=== PATIENT | female | born 1950 | race Caucasian/White ===

== ENCOUNTER → 2022-04-27 | Outpatient (CLI) | payer SELFPAY ==
[2022-04-28 13:31] LABS: Stool Occult Bld Immuno 1 Negative (NEGATIVE)
== END ==
LOC: LAB SHORT 14:42
PROVIDERS: Family Medicine
DX: Z12.11 Encounter for screening for malignant neoplasm of colon (principal)
CPT/HCPCS: G0328

== ENCOUNTER → 2022-09-12 | Outpatient (CLI) | payer MEDICARE ==
[~2022-09-12] MED LIST: ARTIFICIAL TEAR15 M2 OP; CEPH250A; Celexa20 MG PO; DABI150C; DIGOX125 MC1 PO; FURO20; LISI20 PO; METO25ER PO
[2022-09-12 16:12] LABS: Source, Urine Clean Catch
[2022-09-12 16:22] LABS: Bacteria Not Seen /hpf; Squamous Epithelial Cells Not Seen /hpf (Few)
[2022-09-12 16:23] LABS: White Blood Cells, Urine Not Seen /hpf (0-5)
[2022-09-12 16:24] LABS: Red Blood Cells, Urine TNTC /hpf (0-2)
== END | disposition home or self-care (01) ==
LOC: LAB 16:10 → LAB SHORT 16:10
PROVIDERS: Family Medicine
DX: Z00.01 Encounter for general adult medical examination with abnormal findings (principal); I48.0 Paroxysmal atrial fibrillation; I50.89 Other heart failure; R31.9 Hematuria, unspecified
CPT/HCPCS: 80053; 81015; 84443; 85025; 87086

== ENCOUNTER 2022-09-19 12:00 | Day surgery (SDC) | payer MEDICARE ==
[~2022-09-19] VITALS: Ht 165.1 cm; Wt 77.2 kg
[~2022-09-19 12:00] MED LIST changes: -CEPH250A; -FURO20
[2022-09-19] MEDS ORDERED: CEPH250A (12:50)
[2022-09-19] MEDS ORDERED: FURO20 (12:53)
== END 2022-09-19 14:11 | disposition home or self-care (01) ==
LOC: ORSCSDS 12:00
PROVIDERS: Ophthalmology
PROC: 08DJ3ZZ Extraction of Right Lens, Percutaneous Approach (ICD-10-PCS; principal; 2022-09-19 13:30)
DX: H25.11 Age-related nuclear cataract, right eye (principal); K21.9 Gastro-esophageal reflux disease without esophagitis; I10 Essential (primary) hypertension; E78.5 Hyperlipidemia, unspecified; I50.9 Heart failure, unspecified; Z79.899 Other long term (current) drug therapy
CPT/HCPCS: J2001; J2250; J3010; J3301; J7040; V2632

== ENCOUNTER 2022-10-03 08:25 | Day surgery (SDC) | payer MEDICARE ==
[~2022-10-03] VITALS: Ht 165.1 cm; Wt 76.2 kg
[~2022-10-03 08:25] MED LIST changes: +CEPH250A; +FURO20
--- NOTE | 2022-10-03 08:51 | NUR ---
10/03/22 0851 Bianca Gimenez [id number] [address] [id number]
== END 2022-10-03 10:03 | disposition home or self-care (01) ==
LOC: ORSCSDS 08:25
PROVIDERS: Ophthalmology
PROC: 08DK3ZZ Extraction of Left Lens, Percutaneous Approach (ICD-10-PCS; principal; 2022-10-03 09:30)
DX: H25.12 Age-related nuclear cataract, left eye (principal); I10 Essential (primary) hypertension; I48.91 Unspecified atrial fibrillation; F41.9 Anxiety disorder, unspecified; E78.5 Hyperlipidemia, unspecified; Z79.899 Other long term (current) drug therapy
CPT/HCPCS: J2001; J2250; J3010; J3301; J7120; V2632

== ENCOUNTER 2023-06-11 01:11 | Day surgery (SDC) | payer MEDICARE ==
[~2023-06-11 01:11] MED LIST changes: +ACET500 PO; +DEXA6 PO; +LETR2.5 PO; +LEVFLO500 PO; +LORA10ER PO; +MULVITA PO; +ONDA4ODT MM; +PROC5 PO; +ROSU5 PO; +TURMERIC500 M2 PO
[2023-06-11 16:30] VITALS: BP 132/96
== END 2023-06-11 16:45 | disposition home or self-care (01) ==
LOC: ATC 01:11
DX: C50.811 Malignant neoplasm of overlapping sites of right female breast (principal); I48.91 Unspecified atrial fibrillation; I11.0 Hypertensive heart disease with heart failure; I50.9 Heart failure, unspecified; Z88.2 Allergy status to sulfonamides
CPT/HCPCS: 96372; J1447

== ENCOUNTER 2023-06-12 03:45 | Day surgery (SDC) | payer MEDICARE ==
[2023-06-12 16:06] VITALS: BP 124/88
== END 2023-06-12 16:06 | disposition home or self-care (01) ==
LOC: ATC 03:45
DX: C50.811 Malignant neoplasm of overlapping sites of right female breast (principal)
CPT/HCPCS: 96372; J1447

== ENCOUNTER 2023-06-13 03:02 | Day surgery (SDC) | payer MEDICARE ==
[2023-06-13 15:57] VITALS: BP 133/92
== END 2023-06-13 16:00 | disposition home or self-care (01) ==
LOC: ATC 03:02
DX: C50.811 Malignant neoplasm of overlapping sites of right female breast (principal); I48.91 Unspecified atrial fibrillation; I50.9 Heart failure, unspecified; Z88.2 Allergy status to sulfonamides; I11.0 Hypertensive heart disease with heart failure
CPT/HCPCS: 96372; J1447